=== PATIENT | female | born 1955 | race Caucasian/White ===

== ENCOUNTER → 2021-08-06 | Emergency (ER) | payer MEDICARE ==
[~2021-08-06] VITALS: Ht 165.1 cm; Wt 104.3 kg
--- NOTE | 2021-08-06 13:16 | NUR ---
MARIAM 89 AFTER HAVING A SYNCOPE EPISODE. PT WAS IN HER YARD WHEN SHE FAINTED AND NEIGHBORS CALLED FOR RA. PT HAS CONTUSION ON FACE AND HURT HER KNEE DURING HER FALL. PT IS A&OX4 AND BLOOD PRESSURE WAS LOW. PT BREATHING IS REGULAR AND UNLABORED. PT ATTCHED TO MONITOR.
[2021-08-06 14:16] LABS: BASOPHILS # (AUTO) 0.1 K/uL (0.0-0.2); BASOPHILS % (AUTO) 1.4 % (0.0-2.0); EOSINOPHILS % (AUTO) 4.9 % (0.0-6.0); HEMATOCRIT 36 % (33-45); HEMOGLOBIN 12.1 g/dL (11.5-14.8); LYMPHOCYTES # (AUTO) 2.5 K/uL (0.8-4.8); LYMPHOCYTES % (AUTO) 36.9 % (20.0-44.0); MEAN CORPUSCULAR HGB CONC 33 g/dl (31.0-36.0); MEAN CORPUSCULAR VOLUME 110 fL (82-100); MONOCYTES # (AUTO) 0.6 K/uL (0.1-1.30); MONOCYTES % (AUTO) 8.1 % (2.0-12.0); NEUTROPHILS # (AUTO) 3.3 K/uL (1.8-8.9); NEUTROPHILS % (AUTO) 48.7 % (43.0-81.0); PLATELET COUNT (AUTO) 89 K/uL (150-450); RED BLOOD CELL COUNT(AUTO) 3.31 MIL/uL (4.0-5.2); WHITE BLOOD COUNT (AUTO) 6.9 K/uL (4.3-11.0)
[2021-08-06 14:29] LABS: CALCIUM, SERUM 7.8 mg/dL (8.5-10.1); CREATININE 0.8 mg/dL (0.6-1.3); POTASSIUM 3.7 mmol/L (3.5-5.1)
[2021-08-06 14:44] LABS: ALBUMIN 2.4 g/dL (3.4-5.0); BILIRUBIN,DIRECT 1.4 mg/dL (0.0-0.2); BILIRUBIN,TOTAL 2.8 mg/dL (0.2-1.0); TOTAL PROTEIN, SERUM 7.4 g/dL (6.4-8.2)
--- NOTE | 2021-08-06 14:57 | NUR ---
URINE COLLECTED AND SENT TO THE LAB
--- NOTE | 2021-08-06 15:17 | NUR ---
X RAY AT BEDSIDE
--- NOTE | 2021-08-06 16:37 | NUR ---
Patient's Iv was removed. Patient discharged to home in stable condition. Written and verbal after care instructions given. Patient verbalizes understanding of instruction.
[2021-08-06 16:59] VITALS: BP 126/83
== END | disposition home or self-care (01) ==
LOC: ER 13:18
DX: S63.691A Other sprain of left index finger, initial encounter (principal); S00.83XA Contusion of other part of head, initial encounter; S80.01XA Contusion of right knee, initial encounter; I10 Essential (primary) hypertension; Z98.890 Other specified postprocedural states; W18.39XA Other fall on same level, initial encounter; Y93.89 Activity, other specified; Y92.89 Other specified places as the place of occurrence of the external cause; Y99.8 Other external cause status
CPT/HCPCS: 36415; 70450; 70486; 71045; 72125; 73140; 73564; 80048; 80076; 84484; 85025; 99285; J7030